=== PATIENT | male | born 1975 | race Caucasian/White ===

== ENCOUNTER 2017-04-15 04:52 | Inpatient (IN) | payer BC, OTHER ==
[~2017-04-15] VITALS: Ht 193 cm; Wt 110.6 kg
[2017-04-15] MEDS ORDERED: MORPHINE SULFATE 4 MG/ML, 1ML ONE ×3 (05:21→10:04)
[2017-04-15] MEDS ORDERED: KETOROLAC 30 MG/1 ML ONE (05:21)
[2017-04-15] MEDS ORDERED: ACETAMINOPHEN 500 MG TABLET ONE (05:21)
[2017-04-15] MEDS ORDERED: SODIUM CHLORIDE 0.9% 1,000ML IVBOLUS ONE ×3 (05:30→08:00)
[2017-04-15] MEDS ORDERED: KETOROLAC 30 MG/1 ML IVPush ONE (05:30)
[2017-04-15] MEDS ORDERED: ACETAMINOPHEN 500 MG TABLET PO ONE (05:30)
[2017-04-15] MEDS ORDERED: SODIUM CHLORIDE FLUSH 10ML SYR IVF ONE (05:30)
[2017-04-15] MEDS: MORPHINE SULFATE 4 MG/ML, 1ML IVPush PRN ×2 (05:47→06:26)
[2017-04-15 05:48] LABS: MEAN CORPUSCULAR HEMOGLOBIN 32.5 pg (27.5-34.5); MEAN CORPUSCULAR HGB CONC 33.7 g/dL (33.2-36.2); MEAN CORPUSCULAR VOLUME 96.6 fL (81-97); MEAN PLATELET VOLUME 6.4 fL (7.4-10.4); PLATELET COUNT 240 x10^3/uL (130-400); RED BLOOD COUNT 5.44 x10^6/uL (4.38-5.82); RED CELL DISTRIBUTION WIDTH 12.9 % (9.4-14.8)
[2017-04-15] MEDS ORDERED: MAALOX/HYOSCYAMINE/LIDOCAINE 45 ML BTL ONE (05:56)
[2017-04-15 05:58] LABS: ALANINE AMINOTRANSFERASE 69 U/L (12-78); ALBUMIN 3.7 g/dL (3.4-5.0); ANION GAP 14 mmol/L (5-15); CALCIUM 8.8 mg/dL (8.5-10.1); CHLORIDE 97 mmol/L (98-107); CREATININE 1.22 mg/dL (0.7-1.3)
[2017-04-15 06:00] LABS: ALKALINE PHOSPHATASE 49 U/L (45-117); BILIRUBIN,TOTAL 1.1 mg/dL (0.2-1.0); TOTAL PROTEIN 8.2 g/dL (6.4-8.2)
[2017-04-15 06:05] LABS: RAPID INFLUENZA A Negative (Negative); RAPID INFLUENZA B Negative (Negative)
[2017-04-15 06:40] LABS: MD YES
[2017-04-15] MEDS ORDERED: OMNIPAQUE 350 MG/ML, 100ML BOTTLE ONE (06:45)
[2017-04-15 06:46] LABS: BAND#(MANUAL) 7.16 x10^3/uL; BANDS%(MANUAL) 27 % (0-7); LYMPH#(MANUAL) 0.53 x10^3/uL (1-3.4); LYMPHS% (MANUAL) 2 % (22-44); MONOS#(MANUAL) 1.33 x10^3/uL (0.3-2.7); MONOS% (MANUAL) 5 % (2-9); SEG#(MANUAL) 17.49 x10^3/uL (1.8-6.8); SEGS% (MANUAL) 66 % (42-75)
[2017-04-15 06:48] LABS: <PLATELET ESTIMATE> ADEQUATE; <PLT MORPHOLOGY> NORMAL PLT MORPH; <RBC MORPHOLOGY> NORMAL
[2017-04-15 06:53] LABS: HIGH-SENSITIVITY CRP 9.3 mg/dL (0.02-0.30)
[2017-04-15] MEDS ORDERED: CEFTRIAXONE PMX 1GM/50ML 50 ML ONE (07:18)
[2017-04-15] MEDS ORDERED: AZITHROMYCIN 500 MG in SODIUM CHLORIDE 0.9% 250 ML IV ONE (07:30)
[2017-04-15] MEDS ORDERED: CEFTRIAXONE PMX 1GM/50ML 50 ML IV ONE (07:30)
[2017-04-15] MEDS ORDERED: DOCUSATE 100 MG CAPSULE PO PRN (09:30)
[2017-04-15] MEDS ORDERED: ONDANSETRON 2MG/ML, 2ML IVPush PRN (09:30)
[2017-04-15] MEDS ORDERED: ACETAMINOPHEN 325 MG TABLET PO PRN (09:30)
[2017-04-15] MEDS ORDERED: hydrALAzine 20 MG/ML, 1ML IVPush PRN (09:30)
[2017-04-15] MEDS ORDERED: GUAIFENESIN/DM 200-20MG, 10ML UDC PO PRN (09:30)
[2017-04-15] MEDS ORDERED: MORPHINE SULFATE 4 MG/ML, 1ML IVPush ONE (10:00)
[2017-04-15 10:38] LABS: TROPONIN I < 0.015 ng/mL (0.000-0.045)
[2017-04-15] MEDS: SODIUM CHLORIDE 0.9% 1,000 ML IV SCH ×2 (11:47→21:03)
[2017-04-15] MEDS: ENOXAPARIN 40 MG/0.4 ML SQ SCH (11:47)
[2017-04-15] MEDS: NICOTINE 14MG/24 HR PATCH.TD24 TD SCH (11:48)
[2017-04-15] MEDS: KETOROLAC 30 MG/1 ML IVPush PRN ×2 (12:13→18:13)
[2017-04-15 12:19] LABS: MICROSCOPIC INDICATED
[2017-04-15 12:20] LABS: AMPHETAMINE SCREEN, URINE Positive (Negative); BARBITURATE SCREEN, URINE Negative (Negative); BENZODIAZEPINE SCREEN, URINE Negative (Negative); CANNABINOID SCREEN, URINE Positive (Negative); COCAINE SCREEN, URINE Negative (Negative); METHADONE SCREEN, URINE Negative (Negative); OPIATE SCREEN, URINE Positive (Negative)
[2017-04-15 13:00] VITALS: BP 175/99
[2017-04-15 13:06] LABS: CULTURE INDICATED? NO
[2017-04-15 14:01] VITALS: BP 154/100
[2017-04-15] MEDS: OXYcodone IR 5MG TABLET PO PRN ×2 (16:14→20:56)
[2017-04-15 19:27] VITALS: BP 150/91
[2017-04-15] MEDS ORDERED: LORazepam 2 MG/ML, 1ML IVPush PRN (20:00)
[2017-04-16 00:55] VITALS: BP 154/98
[2017-04-16] MEDS: OXYcodone IR 5MG TABLET PO PRN ×6 (00:59→22:31)
[2017-04-16] MEDS: KETOROLAC 30 MG/1 ML IVPush PRN ×4 (01:31→21:57)
[2017-04-16] MEDS: SODIUM CHLORIDE 0.9% 1,000 ML IV SCH ×2 (05:03→18:16)
[2017-04-16 05:28] LABS: CHLORIDE 102 mmol/L (98-107)
[2017-04-16 05:31] LABS: MEAN CORPUSCULAR HEMOGLOBIN 32.9 pg (27.5-34.5); MEAN PLATELET VOLUME 6.8 fL (7.4-10.4); PLATELET COUNT 235 x10^3/uL (130-400); RED BLOOD COUNT 4.82 x10^6/uL (4.38-5.82); RED CELL DISTRIBUTION WIDTH 13.1 % (9.4-14.8)
[2017-04-16 05:37] LABS: ANION GAP 6 mmol/L (5-15); CALCIUM 8.6 mg/dL (8.5-10.1); CREATININE 0.91 mg/dL (0.7-1.3)
[2017-04-16 05:57] LABS: MD YES
[2017-04-16 05:59] LABS: <PLATELET ESTIMATE> ADEQUATE; <PLT MORPHOLOGY> NORMAL PLT MORPH; <RBC MORPHOLOGY> NORMAL; BAND#(MANUAL) 3.39 x10^3/uL; BANDS%(MANUAL) 15 % (0-7); EOS#(MANUAL) 0.23 x10^3/uL (0.0-0.4); EOS% (MANUAL) 1 % (1-7); LYMPH#(MANUAL) 1.58 x10^3/uL (1-3.4); LYMPHS% (MANUAL) 7 % (22-44); MONOS#(MANUAL) 0.45 x10^3/uL (0.3-2.7); MONOS% (MANUAL) 2 % (2-9); SEG#(MANUAL) 16.95 x10^3/uL (1.8-6.8); SEGS% (MANUAL) 75 % (42-75)
[2017-04-16] MEDS: CEFTRIAXONE PMX 1GM/50ML 50 ML IV SCH (07:44)
[2017-04-16 07:45] VITALS: BP 151/83
[2017-04-16] MEDS: AZITHROMYCIN 500 MG in SODIUM CHLORIDE 0.9% 250 ML IV SCH (08:24)
[2017-04-16 08:54] VITALS: BP 146/86
[2017-04-16] MEDS: NICOTINE 14MG/24 HR PATCH.TD24 TD SCH (11:40)
[2017-04-16] MEDS: ENOXAPARIN 40 MG/0.4 ML SQ SCH (11:40)
[2017-04-16 13:41] VITALS: BP 160/98
[2017-04-16 18:00] VITALS: BP 159/94
[2017-04-16 19:22] VITALS: BP 143/92
[2017-04-17] MEDS: NICOTINE 14MG/24 HR PATCH.TD24 TD SCH (01:39)
[2017-04-17 01:44] VITALS: BP 148/92
[2017-04-17] MEDS: OXYcodone IR 5MG TABLET PO PRN ×2 (02:44→08:28)
[2017-04-17] MEDS: KETOROLAC 30 MG/1 ML IVPush PRN (04:47)
[2017-04-17 07:06] VITALS: BP 162/97
[2017-04-17] MEDS: CEFTRIAXONE PMX 1GM/50ML 50 ML IV SCH (08:28)
[2017-04-17] MEDS: SODIUM CHLORIDE 0.9% 1,000 ML IV SCH (08:28)
[2017-04-17 08:37] LABS: MEAN CORPUSCULAR HEMOGLOBIN 32.7 pg (27.5-34.5); MEAN CORPUSCULAR HGB CONC 33.9 g/dL (33.2-36.2); MEAN CORPUSCULAR VOLUME 96.3 fL (81-97); MEAN PLATELET VOLUME 6.7 fL (7.4-10.4); PLATELET COUNT 238 x10^3/uL (130-400); RED BLOOD COUNT 4.81 x10^6/uL (4.38-5.82)
[2017-04-17 08:40] VITALS: BP 155/107
[2017-04-17 09:08] LABS: BASOPHILS # (AUTO) 0.02 x10^3/uL (0-0.1); BASOPHILS % (AUTO) 0 % (0-1); EOSINOPHILS # (AUTO) 0.07 x10^3/uL (0-0.4); EOSINOPHILS % (AUTO) 1 % (1-7); LYMPHOCYTES # (AUTO) 1.29 x10^3/uL (1-3.4); LYMPHOCYTES % (AUTO) 12 % (22-44); MD SCAN; MONOCYTES # (AUTO) 0.43 x10^3/uL (0.2-0.8); MONOCYTES % (AUTO) 4 % (2-9); NEUTROPHILS # (AUTO) 8.81 x10^3/uL (1.8-6.8); NEUTROPHILS % (AUTO) 83 % (42-75)
[2017-04-17] MEDS: AZITHROMYCIN 500 MG in SODIUM CHLORIDE 0.9% 250 ML IV SCH (09:28)
[2017-04-17] MEDS ORDERED: AMOX1TAB64 PO (11:08)
== END 2017-04-17 11:35 | disposition home or self-care (01) | DRG 871 ==
LOC: ED 07:33 → EDIP 07:34 → 3NE 08:40
PROVIDERS: ADMIT Hospitalist; ATTEND Hospitalist
DX: A41.9 Sepsis, unspecified organism (principal); J18.1 Lobar pneumonia, unspecified organism; J96.91 Respiratory failure, unspecified with hypoxia; E87.1 Hypo-osmolality and hyponatremia; F12.90 Cannabis use, unspecified, uncomplicated; I10 Essential (primary) hypertension; R65.20 Severe sepsis without septic shock; Z82.49 Family history of ischemic heart disease and other diseases of the circulatory system
CPT/HCPCS: 36415; 71045; 71275; 80048; 80053; 80307; 81001; 82550; 83605; 83735; 84145; 84484; 85025; 86141; 87040; 87070; 87205; 87400; 93005; 96361; 96365; 96368; 96375; 96376; J0456; J0696; J1650; J1885; Q9967; J0360; J2060; J7030; J7050

== ENCOUNTER 2017-04-18 16:54 | Inpatient (IN) | payer OTHER ==
[~2017-04-18] VITALS: Ht 193 cm; Wt 111.0 kg
[~2017-04-18 16:54] MED LIST: AMOX1TAB64 PO
[2017-04-18 18:05] LABS: BASOPHILS # (AUTO) 0.01 x10^3/uL (0-0.1); BASOPHILS % (AUTO) 0 % (0-1); EOSINOPHILS # (AUTO) 0.16 x10^3/uL (0-0.4); EOSINOPHILS % (AUTO) 1 % (1-7); LYMPHOCYTES # (AUTO) 0.93 x10^3/uL (1-3.4); LYMPHOCYTES % (AUTO) 8 % (22-44); MD NO; MEAN CORPUSCULAR HEMOGLOBIN 32.4 pg (27.5-34.5); MEAN CORPUSCULAR HGB CONC 33.8 g/dL (33.2-36.2); MEAN CORPUSCULAR VOLUME 95.8 fL (81-97); MEAN PLATELET VOLUME 6.6 fL (7.4-10.4); MONOCYTES # (AUTO) 0.86 x10^3/uL (0.2-0.8); MONOCYTES % (AUTO) 8 % (2-9); NEUTROPHILS # (AUTO) 9.16 x10^3/uL (1.8-6.8); NEUTROPHILS % (AUTO) 82 % (42-75); PLATELET COUNT 314 x10^3/uL (130-400); RED BLOOD COUNT 4.86 x10^6/uL (4.38-5.82); RED CELL DISTRIBUTION WIDTH 12.7 % (9.4-14.8)
[2017-04-18 18:06] LABS: ALBUMIN 3.2 g/dL (3.4-5.0); ANION GAP 8 mmol/L (5-15); CALCIUM 9.2 mg/dL (8.5-10.1); CHLORIDE 105 mmol/L (98-107); CREATININE 0.88 mg/dL (0.7-1.3)
[2017-04-18] MEDS ORDERED: HYDROmorphone 1 MG/ML, 1ML ONE ×2 (19:14→20:06)
[2017-04-18] MEDS: HYDROmorphone 1 MG/ML, 1ML IVPush PRN ×2 (19:26→20:08)
[2017-04-18] MEDS ORDERED: AZITHROMYCIN 500 MG TABLET PO ONE (19:30)
[2017-04-18] MEDS ORDERED: CEFTRIAXONE PMX 1GM/50ML 50 ML IVPB ONE (19:30)
[2017-04-18] MEDS ORDERED: PIPERACILLIN/TAZO/PMX 3.375GM 50 ML IVPB ONE (19:30)
[2017-04-18] MEDS ORDERED: PHARMACOKINETIC CONSULTATION MC ONE ×2 (19:30→23:00)
[2017-04-18] MEDS ORDERED: HYDROmorphone 1 MG/ML, 1ML IM PRN (19:30)
[2017-04-18] MEDS ORDERED: VANCOMYCIN PER PHARMACY IV ONE (19:30)
[2017-04-18] MEDS ORDERED: SODIUM CHLORIDE FLUSH 10ML SYR IVF ONE (19:30)
[2017-04-18] MEDS ORDERED: CEFTRIAXONE 1,000 MG IM ONE (19:30)
[2017-04-18] MEDS ORDERED: OMNIPAQUE 350 MG/ML, 100ML BOTTLE ONE (19:56)
[2017-04-18] MEDS ORDERED: VANCOMYCIN 2,000 MG in SODIUM CHLORIDE 0.9% 500 ML IV ONE (20:00)
[2017-04-18] MEDS ORDERED: LORazepam 2 MG/ML, 1ML ONE (20:42)
[2017-04-18] MEDS ORDERED: LORazepam 2 MG/ML, 1ML IVPush ONE (21:00)
[2017-04-18 21:40] VITALS: BP 158/88
[2017-04-18] MEDS ORDERED: HYDROmorphone 2 MG/ML, 1ML ONE (22:27)
[2017-04-18] MEDS: HYDROmorphone 2 MG/ML, 1ML IVPush PRN (22:36)
[2017-04-18] MEDS ORDERED: POLYETHYLENE GLYCOL 17 GM PACKET PO PRN (23:00)
[2017-04-18] MEDS ORDERED: PHARMACOKINETIC MONITORING MC PRN (23:00)
[2017-04-18] MEDS ORDERED: ENALAPRILAT 1.25 MG/ML, 2ML IVPush PRN (23:00)
[2017-04-18] MEDS ORDERED: hydrALAzine 20 MG/ML, 1ML IVPush PRN (23:00)
[2017-04-18] MEDS ORDERED: ONDANSETRON 2MG/ML, 2ML IVPush PRN (23:00)
[2017-04-18] MEDS ORDERED: VANCOMYCIN PER PHARMACY MC PRN (23:00)
[2017-04-18] MEDS ORDERED: BISACODYL 10 MG SUPP PR PRN (23:00)
[2017-04-18] MEDS: NICOTINE 14MG/24 HR PATCH.TD24 TD SCH (23:00)
[2017-04-18] MEDS ORDERED: VANCOMYCIN PMX 1GM/200ML 200 ML IV ONE (23:00)
[2017-04-18] MEDS ORDERED: ACETAMINOPHEN 325 MG TABLET PO PRN (23:00)
[2017-04-18 23:15] LABS: FREE T4 (FREE THYROXINE) 1.15 ng/dL (0.76-1.46); HEMOGLOBIN A1C 5.3 % (4.2-6.3); THYROID STIMULATING HORMONE 2.2 mIU/L (0.358-3.740)
[2017-04-18] MEDS: GUAIFENESIN ER 600 MG TABLET PO SCH (23:16)
[2017-04-18] MEDS: SODIUM CHLORIDE 0.9% 1,000 ML IV SCH (23:16)
[2017-04-18] MEDS: HEPARIN 5,000 UNITS/ML, 1ML SQ SCH (23:17)
[2017-04-18] MEDS: OXYcodone IR 5MG TABLET PO PRN (23:17)
[2017-04-19] MEDS: PIPERACILLIN/TAZO/PMX 3.375GM 50 ML IV SCH ×5 (00:29→23:58)
[2017-04-19] MEDS ORDERED: ALBUTEROL/IPRATROPIUM 2.5MG/0.5MG, 3 ML NPPB PRN (00:30)
[2017-04-19] MEDS: morphine SULFATE 10 MG/ML, 1ML IVPush PRN ×4 (00:36→06:36)
[2017-04-19 02:00] VITALS: BP_SYST 160; BP_SYST 161; BP_DIAS 100; BP_DIAS 98
[2017-04-19 04:04] LABS: ALBUMIN 2.9 g/dL (3.4-5.0); ANION GAP 10 mmol/L (5-15); CALCIUM 8.6 mg/dL (8.5-10.1); CHLORIDE 100 mmol/L (98-107)
[2017-04-19 04:10] LABS: ALANINE AMINOTRANSFERASE 85 U/L (12-78); ALKALINE PHOSPHATASE 54 U/L (45-117); BILIRUBIN,TOTAL 0.8 mg/dL (0.2-1.0); CHOLESTEROL, TOTAL 133 mg/dL (140-239); CREATININE 0.85 mg/dL (0.7-1.3); HDL CHOL % 34 % (26-37); HDL CHOLESTEROL (DIRECT) 45 mg/dL (40-60); LDL CHOLESTEROL,CALCULATED 70 mg/dL (54-169); LDL/HDL RATIO 1.6 (0.5-3.0); TOTAL PROTEIN 7.3 g/dL (6.4-8.2); TRIGLYCERIDES 89 mg/dL (50-200); TROPONIN I < 0.015 ng/mL (0.000-0.045); VLDL CHOLESTEROL 18 mg/dL (0-25)
[2017-04-19 04:14] LABS: MEAN CORPUSCULAR HEMOGLOBIN 32.7 pg (27.5-34.5); MEAN CORPUSCULAR VOLUME 96.3 fL (81-97); MEAN PLATELET VOLUME 6.7 fL (7.4-10.4); PLATELET COUNT 282 x10^3/uL (130-400); RED BLOOD COUNT 4.52 x10^6/uL (4.38-5.82); RED CELL DISTRIBUTION WIDTH 12.6 % (9.4-14.8)
[2017-04-19 05:39] LABS: BASOPHILS # (AUTO) 0.03 x10^3/uL (0-0.1); BASOPHILS % (AUTO) 0 % (0-1); EOSINOPHILS # (AUTO) 0.15 x10^3/uL (0-0.4); EOSINOPHILS % (AUTO) 1 % (1-7); LYMPHOCYTES # (AUTO) 0.99 x10^3/uL (1-3.4); LYMPHOCYTES % (AUTO) 7 % (22-44); MD SCAN; MONOCYTES # (AUTO) 1.64 x10^3/uL (0.2-0.8); MONOCYTES % (AUTO) 11 % (2-9); NEUTROPHILS # (AUTO) 12.22 x10^3/uL (1.8-6.8); NEUTROPHILS % (AUTO) 81 % (42-75)
[2017-04-19] MEDS: SODIUM CHLORIDE 0.9% 1,000 ML IV SCH (06:59)
[2017-04-19] MEDS: HYDROmorphone 2 MG/ML, 1ML IVPush PRN (07:59)
[2017-04-19] MEDS ORDERED: POTASSIUM CHLORIDE 20 MEQ TAB.ER.PRT PO ONE (08:00)
[2017-04-19 08:14] VITALS: BP 165/96
[2017-04-19] MEDS: SENNA/DOCUSATE TABLET PO SCH (08:24)
[2017-04-19] MEDS ORDERED: LORazepam 0.5MG TABLET PO PRN (08:30)
[2017-04-19] MEDS ORDERED: LORazepam 1MG TABLET PO PRN (08:30)
[2017-04-19] MEDS: VANCOMYCIN 2,000 MG in SODIUM CHLORIDE 0.9% 500 ML IV SCH ×2 (08:44→20:07)
[2017-04-19 08:47] LABS: TROPONIN I < 0.015 ng/mL (0.000-0.045)
[2017-04-19] MEDS: LORazepam 1MG TABLET PO PRN (08:56)
[2017-04-19] MEDS: THIAMINE 100MG TABLET PO SCH ×2 (09:00→20:07)
[2017-04-19] MEDS: KETOROLAC 30 MG/1 ML IVPush PRN ×3 (10:16→22:04)
[2017-04-19] MEDS: POTASSIUM CHLORIDE 20 MEQ, MVI ADULT 10 ML, FOLIC ACID 1 MG, MAGNESIUM SULFATE 1 GM in ... IV SCH ×2 (10:19→21:00)
[2017-04-19] MEDS: SUCRALFATE 1 GM/10 ML UDC PO SCH ×3 (10:55→20:07)
[2017-04-19] MEDS: GUAIFENESIN ER 600 MG TABLET PO SCH ×2 (10:55→20:07)
[2017-04-19 12:15] LABS: MICROSCOPIC AUTO
[2017-04-19 12:16] LABS: CULTURE INDICATED? NO
[2017-04-19 12:38] LABS: AMPHETAMINE SCREEN, URINE Positive (Negative); BARBITURATE SCREEN, URINE Negative (Negative); BENZODIAZEPINE SCREEN, URINE Negative (Negative); CANNABINOID SCREEN, URINE Positive (Negative); COCAINE SCREEN, URINE Negative (Negative); METHADONE SCREEN, URINE Negative (Negative); OPIATE SCREEN, URINE Positive (Negative)
[2017-04-19] MEDS: OXYcodone IR 5MG TABLET PO PRN ×3 (12:41→23:13)
[2017-04-19] MEDS: HEPARIN 5,000 UNITS/ML, 1ML SQ SCH ×2 (13:00→20:07)
[2017-04-19 15:09] VITALS: BP 157/101
[2017-04-19] MEDS: NICOTINE 14MG/24 HR PATCH.TD24 TD SCH (20:09)
[2017-04-19 20:27] VITALS: BP 163/99
[2017-04-20 02:01] VITALS: BP 162/115
[2017-04-20] MEDS: LORazepam 1MG TABLET PO PRN ×2 (02:08→16:22)
[2017-04-20] MEDS: OXYcodone IR 5MG TABLET PO PRN ×4 (04:16→19:32)
[2017-04-20] MEDS: KETOROLAC 30 MG/1 ML IVPush PRN ×3 (04:16→19:32)
[2017-04-20] MEDS: HEPARIN 5,000 UNITS/ML, 1ML SQ SCH ×3 (05:11→19:34)
[2017-04-20 05:35] LABS: MEAN CORPUSCULAR HEMOGLOBIN 32.9 pg (27.5-34.5); MEAN CORPUSCULAR HGB CONC 34.2 g/dL (33.2-36.2); MEAN CORPUSCULAR VOLUME 96.4 fL (81-97); MEAN PLATELET VOLUME 6.5 fL (7.4-10.4); PLATELET COUNT 303 x10^3/uL (130-400); RED BLOOD COUNT 4.45 x10^6/uL (4.38-5.82); RED CELL DISTRIBUTION WIDTH 13.3 % (9.4-14.8)
[2017-04-20 05:40] LABS: CHLORIDE 107 mmol/L (98-107)
[2017-04-20 05:54] LABS: ALANINE AMINOTRANSFERASE 88 U/L (12-78); ALBUMIN 2.4 g/dL (3.4-5.0); ALKALINE PHOSPHATASE 67 U/L (45-117); ANION GAP 7 mmol/L (5-15); BILIRUBIN,TOTAL 0.5 mg/dL (0.2-1.0); CALCIUM 8.6 mg/dL (8.5-10.1); CREATININE 0.86 mg/dL (0.7-1.3); TOTAL PROTEIN 6.7 g/dL (6.4-8.2)
[2017-04-20] MEDS: PIPERACILLIN/TAZO/PMX 3.375GM 50 ML IV SCH ×3 (05:59→19:43)
[2017-04-20 06:18] LABS: BASOPHILS # (AUTO) 0.04 x10^3/uL (0-0.1); BASOPHILS % (AUTO) 0 % (0-1); EOSINOPHILS # (AUTO) 0.27 x10^3/uL (0-0.4); EOSINOPHILS % (AUTO) 3 % (1-7); LYMPHOCYTES # (AUTO) 1.48 x10^3/uL (1-3.4); LYMPHOCYTES % (AUTO) 14 % (22-44); MD SCAN; MONOCYTES # (AUTO) 1.65 x10^3/uL (0.2-0.8); MONOCYTES % (AUTO) 16 % (2-9); NEUTROPHILS # (AUTO) 7.21 x10^3/uL (1.8-6.8); NEUTROPHILS % (AUTO) 68 % (42-75)
[2017-04-20 08:01] LABS: VANCOMYCIN,TROUGH 6.5 mcg/mL (5.0-10.0)
[2017-04-20 08:20] VITALS: BP 163/109
[2017-04-20] MEDS: SUCRALFATE 1 GM/10 ML UDC PO SCH ×4 (08:23→19:33)
[2017-04-20] MEDS: VANCOMYCIN 2,000 MG in SODIUM CHLORIDE 0.9% 500 ML IV SCH ×2 (08:24→16:23)
[2017-04-20] MEDS: SENNA/DOCUSATE TABLET PO SCH (09:00)
[2017-04-20] MEDS: THIAMINE 100MG TABLET PO SCH ×2 (09:31→19:33)
[2017-04-20] MEDS: GUAIFENESIN ER 600 MG TABLET PO SCH ×2 (12:14→19:33)
[2017-04-20] MEDS: POTASSIUM CHLORIDE 20 MEQ, MVI ADULT 10 ML, FOLIC ACID 1 MG, MAGNESIUM SULFATE 1 GM in ... IV SCH ×2 (12:15→18:11)
[2017-04-20 13:50] VITALS: BP 186/87
[2017-04-20] MEDS: NICOTINE 14MG/24 HR PATCH.TD24 TD SCH (19:33)
[2017-04-20 20:54] VITALS: BP_SYST 134; BP_SYST 178; BP_DIAS 119; BP_DIAS 94
[2017-04-21] MEDS: KETOROLAC 30 MG/1 ML IVPush PRN ×2 (02:15→08:34)
[2017-04-21] MEDS: PIPERACILLIN/TAZO/PMX 3.375GM 50 ML IV SCH (02:15)
[2017-04-21] MEDS: OXYcodone IR 5MG TABLET PO PRN ×2 (02:16→06:11)
[2017-04-21] MEDS: LORazepam 1MG TABLET PO PRN ×2 (02:16→07:19)
[2017-04-21] MEDS: POTASSIUM CHLORIDE 20 MEQ, MVI ADULT 10 ML, FOLIC ACID 1 MG, MAGNESIUM SULFATE 1 GM in ... IV SCH (02:22)
[2017-04-21 02:53] VITALS: BP 150/90
[2017-04-21] MEDS: VANCOMYCIN 2,000 MG in SODIUM CHLORIDE 0.9% 500 ML IV SCH (04:15)
[2017-04-21 04:55] LABS: BASOPHILS # (AUTO) 0.06 x10^3/uL (0-0.1); BASOPHILS % (AUTO) 1 % (0-1); EOSINOPHILS # (AUTO) 0.25 x10^3/uL (0-0.4); EOSINOPHILS % (AUTO) 3 % (1-7); LYMPHOCYTES # (AUTO) 1.45 x10^3/uL (1-3.4); LYMPHOCYTES % (AUTO) 16 % (22-44); MD NO; MEAN CORPUSCULAR HGB CONC 34.3 g/dL (33.2-36.2); MEAN CORPUSCULAR VOLUME 96.2 fL (81-97); MEAN PLATELET VOLUME 6.6 fL (7.4-10.4); MONOCYTES # (AUTO) 0.92 x10^3/uL (0.2-0.8); MONOCYTES % (AUTO) 10 % (2-9); NEUTROPHILS # (AUTO) 6.65 x10^3/uL (1.8-6.8); NEUTROPHILS % (AUTO) 71 % (42-75); PLATELET COUNT 392 x10^3/uL (130-400); RED BLOOD COUNT 4.37 x10^6/uL (4.38-5.82); RED CELL DISTRIBUTION WIDTH 12.8 % (9.4-14.8)
[2017-04-21 05:00] LABS: ALBUMIN 2.5 g/dL (3.4-5.0); ANION GAP 10 mmol/L (5-15); CALCIUM 8.3 mg/dL (8.5-10.1); CHLORIDE 106 mmol/L (98-107); CREATININE 0.77 mg/dL (0.7-1.3)
[2017-04-21] MEDS: HEPARIN 5,000 UNITS/ML, 1ML SQ SCH ×2 (05:27→12:02)
[2017-04-21] MEDS ORDERED: GUAIFENESIN/DM 100-10MG, 5ML UDC PO PRN (05:30)
[2017-04-21] MEDS ORDERED: GUAIFENESIN/DM 200-20MG, 10ML UDC PO PRN (05:30)
[2017-04-21] MEDS: SUCRALFATE 1 GM/10 ML UDC PO SCH ×2 (06:11→12:02)
[2017-04-21] MEDS ORDERED: POTASSIUM CHLORIDE 20 MEQ TAB.ER.PRT PO ONE (07:30)
[2017-04-21] MEDS ORDERED: CEFTRIAXONE PMX 2GM/50ML 50 ML IV SCH (07:30)
[2017-04-21] MEDS: THIAMINE 100MG TABLET PO SCH (08:27)
[2017-04-21] MEDS: SENNA/DOCUSATE TABLET PO SCH (08:28)
[2017-04-21] MEDS: GUAIFENESIN ER 600 MG TABLET PO SCH (08:33)
[2017-04-21] MEDS ORDERED: DOXYCYCLINE 100MG TABLET PO SCH (09:00)
[2017-04-21 09:27] VITALS: BP 166/96
[2017-04-21] MEDS ORDERED: OXYcodone IR 5MG TABLET PO PRN (11:00)
[2017-04-21] MEDS ORDERED: FOLIC ACID 1 MG TABLET PO SCH (12:00)
[2017-04-21] MEDS ORDERED: THIAMINE 100MG TABLET PO SCH (12:00)
[2017-04-21] MEDS ORDERED: GUAIFENESIN 200 MG TABLET PO SCH (16:00)
== END 2017-04-21 14:38 | disposition left against medical advice (07) | DRG 871 ==
LOC: ED 19:39 → EDIP 20:57 → 3NE 21:34
PROVIDERS: ADMIT Internal Medicine; ATTEND Internal Medicine
DX: A41.9 Sepsis, unspecified organism (principal); J15.9 Unspecified bacterial pneumonia; E43 Unspecified severe protein-calorie malnutrition; I11.0 Hypertensive heart disease with heart failure; I50.30 Unspecified diastolic (congestive) heart failure; E87.1 Hypo-osmolality and hyponatremia; F10.239 Alcohol dependence with withdrawal, unspecified; R04.2 Hemoptysis; E87.6 Hypokalemia; F12.10 Cannabis abuse, uncomplicated; Z87.01 Personal history of pneumonia (recurrent); Z53.21 Procedure and treatment not carried out due to patient leaving prior to being seen by health care provider; F15.10 Other stimulant abuse, uncomplicated; F17.200 Nicotine dependence, unspecified, uncomplicated; I77.810 Thoracic aortic ectasia; Z68.29 Body mass index [BMI] 29.0-29.9, adult; Z82.49 Family history of ischemic heart disease and other diseases of the circulatory system
CPT/HCPCS: 36415; 71045; 71046; 71275; 80048; 80053; 80061; 80202; 80307; 81001; 82040; 83036; 83605; 83735; 84100; 84439; 84443; 84484; 85025; 87040; 87070; 87205; 93005; 93306; 96365; 96375; 96376; J0696; J1170; J1644; J1885; J2543; J3370; J3475; J3480; J7042; Q9967; J2060; J2270; J7030; J7040